=== PATIENT | female | born 1940 | race Caucasian/White ===

== ENCOUNTER 2016-07-03 03:11 | Inpatient (IN) | payer OTHER, MEDICAID ==
[~2016-07-03] VITALS: Ht 165.1 cm; Wt 50.8 kg
[2016-07-03 03:30] VITALS: BP 138/73
[2016-07-03] MEDS ORDERED: ACETAMINOPHEN 325 MG TABLET PO PRN (03:30)
[2016-07-03] MEDS ORDERED: MAGNESIUM HYDROXIDE 30 ML UDC PO PRN (03:30)
[2016-07-03] MEDS ORDERED: clonazePAM 0.5 MG TABLET PO PRN (03:30)
[2016-07-03] MEDS ORDERED: MAG HYDROX/AL HYDROX/SIMETH 30 ML UDC PO PRN (03:30)
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
[2016-07-03] MEDS ORDERED: DIVA500T54 PO (04:12)
[2016-07-03] MEDS ORDERED: ALEN70TA45 PO (04:23)
--- NOTE | 2016-07-03 08:22 | NUR ---
administered klonopin 0.5 mg po prn for anxiety, irritable bp -125/76, p-76, continued monitoring.
[2016-07-03] MEDS: DIVALPROEX SODIUM 500 MG TABLET.DR PO SCH ×2 (12:00→22:04)
[2016-07-03 20:00] VITALS: BP 112/71
[2016-07-03] MEDS: OLANZAPINE 5 MG/TAB.RAPDIS PO SCH (22:04)
[2016-07-03] MEDS: TEMAZEPAM 7.5 MG CAPSULE PO PRN (22:04)
[2016-07-04] MEDS ORDERED: ALENDRONATE 70 MG TABLET PO SCH (07:30)
[2016-07-04 08:00] VITALS: BP 119/64
[2016-07-04] MEDS: OLANZAPINE 5 MG/TAB.RAPDIS PO SCH ×2 (08:43→21:25)
[2016-07-04] MEDS: DIVALPROEX SODIUM 500 MG TABLET.DR PO SCH ×2 (08:43→20:52)
[2016-07-04 16:00] VITALS: BP 114/65
--- NOTE | 2016-07-04 19:44 | NUR ---
GPS/RN NOTE: PATIENT IS AT THE DINING AREA, SITTING ON CHAIR, NO COMPLAINTS MADE, APPEARS COMFORTABLE. NO ACUTE DISTRESS NOTED.
[2016-07-04 20:09] VITALS: BP 114/58
[2016-07-05] MEDS: ALENDRONATE 70 MG TABLET PO SCH (07:07)
[2016-07-05 08:00] VITALS: BP 115/67
[2016-07-05] MEDS: OLANZAPINE 5 MG/TAB.RAPDIS PO SCH ×2 (08:37→21:28)
[2016-07-05] MEDS: DIVALPROEX SODIUM 500 MG TABLET.DR PO SCH ×2 (08:37→21:28)
[2016-07-05 16:00] VITALS: BP 148/77
--- NOTE | 2016-07-05 16:14 | NUR ---
Initial Discharge Plan: Patient lives at [address] [place] [address] [address] [place] [id number]; [phone].Pt is on [address]. and wants to return when discharged. SW attempted to contact Patient's contact Enid Hope but was informed that she no longer works at [employer]. SS will form a safe and proper discharge.
[2016-07-05 20:00] VITALS: BP 115/65
[2016-07-05] MEDS: TEMAZEPAM 7.5 MG CAPSULE PO PRN (23:36)
--- NOTE | 2016-07-06 06:45 | NUR ---
pt. refused am labs encouraged x 3 still refused
[2016-07-06] MEDS: OLANZAPINE 5 MG/TAB.RAPDIS PO SCH ×2 (08:16→21:58)
[2016-07-06] MEDS: DIVALPROEX SODIUM 500 MG TABLET.DR PO SCH ×2 (08:16→21:58)
[2016-07-06] MEDS: ALENDRONATE 70 MG TABLET PO SCH (08:18)
[2016-07-06 08:40] VITALS: BP 127/68
--- NOTE | 2016-07-06 09:06 | NUR ---
Psychosocial assessment was reviewed and I concur with the information provided. No other changes are necessary. Cate Naranjo, [employer]PER[employer] [id number] Addendum: 07/06/16 at 0907 by CATE NARANJO SW Amended: Links added.
--- NOTE | 2016-07-06 09:33 | NUR ---
GPS RN NOTE: PT REFUSED LABS TODAY COMPLIANT WITH MEDICATIONS REFUSED FOSAMAX WILL CONTINUE MONITORING FOR SAFETY AND BEHAVIOR Q 15 MIN
--- NOTE | 2016-07-06 13:56 | NUR ---
back shoe worker informed Wellington from intake that patient's face sheet displays her insurance as [employer] and the census displays Medicare [employer] and [employer]. back shoe worker will follow-up.
[2016-07-06 21:49] VITALS: BP 148/88
[2016-07-06] MEDS: TEMAZEPAM 7.5 MG CAPSULE PO PRN (23:31)
[2016-07-07 08:00] VITALS: BP 109/57
[2016-07-07] MEDS: OLANZAPINE 5 MG/TAB.RAPDIS PO SCH ×2 (08:47→21:46)
[2016-07-07] MEDS: DIVALPROEX SODIUM 500 MG TABLET.DR PO SCH ×2 (08:47→21:46)
--- NOTE | 2016-07-07 13:27 | NUR ---
UR update: pitch worker faxed initial review packet to [employer] (fax:[phone]/ ) rn case management for [facility]. clinical social work aide will follow-up. Addendum: 07/07/16 at 1338 by JENNI BRYAN
[2016-07-07 16:00] VITALS: BP 100/64
[2016-07-07 20:18] VITALS: BP 110/65
[2016-07-07] MEDS: TEMAZEPAM 7.5 MG CAPSULE PO PRN (23:20)
[2016-07-08] MEDS ORDERED: ALENDRONATE 70 MG TABLET PO SCH (07:30)
[2016-07-08 08:00] VITALS: BP 122/77
[2016-07-08] MEDS: OLANZAPINE 5 MG/TAB.RAPDIS PO SCH ×2 (08:11→20:59)
[2016-07-08] MEDS: DIVALPROEX SODIUM 500 MG TABLET.DR PO SCH ×2 (08:11→20:59)
[2016-07-08 16:00] VITALS: BP 101/61
[2016-07-08 20:00] VITALS: BP 116/64
[2016-07-09 08:00] VITALS: BP 116/52
[2016-07-09] MEDS: DIVALPROEX SODIUM 500 MG TABLET.DR PO SCH (08:27)
[2016-07-09] MEDS: OLANZAPINE 5 MG/TAB.RAPDIS PO SCH (08:27)
--- NOTE | 2016-07-09 09:57 | NUR ---
UR update: harvest worker field crop faxed updated clinicals to [employer] (fax:[phone]/ ) case liner for Armen [facility]. group social worker will follow-up.
--- NOTE | 2016-07-09 09:57 | NUR ---
pick up worker spoke to patient's niece who stated that she was her conservator Edith Madrid ([phone]) who requested to speak to patient's psychiatrist. pick up worker informed patient's assigned psychiatrist. pick up worker will follow-up.
--- NOTE | 2016-07-09 12:54 | NUR ---
telephone sex worker spoke to Ashley ([phone]) a spring encaser from [facility] mental health clinic [facility] contracted who gave been providing services to the patient. Ashley stated that Edith Kong is not the patient's niece and that the patient is not conserved. Ashley stated that Edith is a In home health care worker and should not be involved in the patient's discharge plan as they are concerned about her intentions. telephone sex worker will file an APS report and will follow-up with Ashley.
--- NOTE | 2016-07-09 15:00 | NUR ---
RN-CO: Dr. Hinds canceled the order for Invega Sustena 156 mg IM, noted.
--- NOTE | 2016-07-09 15:00 | NUR ---
RN-CO: DR MCGILL DISCONTINUE HOLD AND ORDERED TO DISCHARGE PATIENT TO BOARD AND CARE NOTED AND CARRIED OUT.
--- NOTE | 2016-07-09 15:10 | NUR ---
RN-CO: Patient denied suicidal and homicidal ideation. Denied auditory and visual hallucination. Calm and cooperative to care. No acute distress noted.
--- NOTE | 2016-07-09 15:30 | NUR ---
RN-CO: Dr Benjamin notified of the discharge and medically cleared patient. All belongings will be given back to the patient. Discharge papers were explained and patient verbalized understanding.
--- NOTE | 2016-07-09 15:33 | NUR ---
flume worker spoke to Foreign ([phone]) human services case manager from [facility] who stated that patient is receiving services from them and they are concerned about Edith Francois her [place] care worker who claims to be patient's niece and conservator. Per foreign, patient is not conserved and he has filed APS reports because he feels Edith Francois does not have the patient's best intentions. Foreign stated that he would send a nurse to follow-up with patient upon discharge.
--- NOTE | 2016-07-09 16:11 | NUR ---
casino worker filed an APS report Intake ID#: [id number].
--- NOTE | 2016-07-09 16:13 | NUR ---
GPS/RN PRESCRIPTIONS CALLED IN TO [facility] [phone]/ LAZ[place]. D/C INSTRUCTIONS GIVEN. PT REFUSED TO SIGN D/C PAPERWORK. NO SI OR HI AT THE TIME OF D/C. BELONGINGS RETURNED. REPORT GIVEN TO AMBULANCE.
--- NOTE | 2016-07-09 16:50 | NUR ---
Discharge Note: Patient was discharged to [facility] & [address] [place] [address]; [phone]. Patient was transported via [employer]. Patient was provided Rx to [facility] ([phone]) pharmacist Gracia. Patient did not have family to contact, However, social work job titles informed Eleuterio ([phone]) the Board & multimedia coordinator that patient was returning to the Board [facility]. Patient was agreeable with the discharge plan. Patient's mood and affect were appropriate upon discharge. Patient was calm and cooperative and denies suicidal and homicidal ideations. Patient's case packer and sealer Foreign ([phone]) from [facility] stated that he would follow-up with the patient upon discharge. Patient's therapist Dolly ([phone]) will also follow-up with patient upon discharge. Patient has an appointment with her psychiatrist from the [facility] July 30, 2016 at 12:30pm in which she can discuss her substance abuse dependence. Facilitated info to IDT team who are in agreement with discharge arrangement. The multidisciplinary exitcare form was done, printed, signed, and given to the patient.
--- NOTE | 2016-07-09 17:05 | NUR ---
fabric and textile factory worker informed Edith Britton ([phone]) that patient was being discharged and referred her to contact the patient's home health care case manager Foreign ([phone]) from [facility] if she had further questions.
[2016-07-13] MEDS ORDERED: ALENDRONATE 70 MG TABLET PO SCH (07:30)
== END 2016-07-09 16:15 | disposition home or self-care (01) | DRG 885 ==
LOC: GPS 03:11
PROVIDERS: ADMIT Psychiatry & Neurology Psychiatry; ATTEND Family Medicine
DX: F31.2 Bipolar disorder, current episode manic severe with psychotic features (principal); F14.21 Cocaine dependence, in remission; F12.21 Cannabis dependence, in remission; M81.0 Age-related osteoporosis without current pathological fracture; F17.210 Nicotine dependence, cigarettes, uncomplicated; Z79.899 Other long term (current) drug therapy; Z91.19 Patient's noncompliance with other medical treatment and regimen
CPT/HCPCS: 87081-TC; 97001-TC